=== PATIENT | female | born 1980 | race Asian ===

== ENCOUNTER 2024-01-06 19:03 | Emergency (ER) | payer BC ==
[~2024-01-06] VITALS: Ht 167.6 cm; Wt 59.0 kg
[2024-01-06 20:07] LABS: HEMOGLOBIN 9.5 g/dL (10.9-14.3); MEAN CORPUSCULAR HEMOGLOBIN 20.5 uug (24.7-32.8); MONOCYTES # (AUTO) 0.4 K/uL (0.1-1.30); PLATELET COUNT (AUTO) 201 K/uL (179-408)
[2024-01-06 20:09] LABS: BASOPHILS % (AUTO) 0.9 % (0.0-2.0); EOSINOPHILS % (AUTO) 0.3 % (0.0-7.0); HEMATOCRIT 30.7 % (31.2-41.9); LYMPHOCYTES # (AUTO) 0.7 K/uL (0.8-4.8); LYMPHOCYTES % (AUTO) 41.6 % (20.5-51.5); MEAN CORPUSCULAR HGB CONC 31 g/dL (32.3-35.6); MEAN CORPUSCULAR VOLUME 66.4 fL (75.5-95.3); MONOCYTES % (AUTO) 23.3 % (0.0-11.0); NEUTROPHILS # (AUTO) 0.6 K/uL (1.8-8.9); NEUTROPHILS % (AUTO) 33.9 % (38.5-71.5); RED BLOOD CELL COUNT(AUTO) 4.62 MIL/uL (3.63-4.92); RED CELL DISTRIBUTION WIDTH 19.6 % (12.3-17.7)
[2024-01-06 20:12] LABS: DIFFERENTIAL COMMENT 1
[2024-01-06 20:15] LABS: WHITE BLOOD COUNT (AUTO) 1.7 K/uL (3.8-11.8)
[2024-01-06 20:26] LABS: *MONOTEST NEGATIVE (NEGATIVE)
[2024-01-06] MEDS: KETOROLAC TROMETHAMINE 30 MG INJ IVP ONE (20:30)
[2024-01-06 21:35] LABS: LYMPHOCYTES % (MANUAL) 44 % (20-40); MONOCYTES % (MANUAL) 20 % (2-10); NEUTROPHILS % (MANUAL) 36 % (42-75); PLATELET ESTIMATE ADEQUATE
[2024-01-06] MEDS ORDERED: KETOROLAC TROMETHAMINE 30 MG INJ ONE (21:35)
[2024-01-06 21:36] LABS: ANISOCYTOSIS 2+
[2024-01-06 21:37] LABS: OVALOCYTES 1+; TEAR DROP CELLS 1+
[2024-01-06 23:04] LABS: CALCIUM 8.4 mg/dL (8.5-10.1); CREATININE 0.6 mg/dL (0.6-1.3); POTASSIUM 3.9 mmol/L (3.5-5.1)
[2024-01-06 23:10] LABS: ALBUMIN 3.4 g/dL (3.4-5.0); BILIRUBIN,TOTAL 0.3 mg/dL (0.2-1.0); TOTAL PROTEIN, SERUM 7.1 g/dL (6.4-8.2)
[2024-01-06] MEDS ORDERED: IOHEXOL 300MG/ML 100 ML INFUS..BTL ONE (23:19)
[2024-01-06] MEDS ORDERED: SWABABLE VALVE TRANSFER SET EA MC ONE (23:19)
[2024-01-06] MEDS ORDERED: IV NORMAL SALINE 250 ML IV ONE (23:19)
[2024-01-07] MEDS ORDERED: CLIN-118 PO (06:23)
[2024-01-07 07:05] VITALS: BP 113/72; TEMP 98; O2SAT 98
== END 2024-01-07 07:06 | disposition home or self-care (01) ==
LOC: EDSEX 19:08 → ER 19:08
DX: K11.20 Sialoadenitis, unspecified (principal); Z20.822 Contact with and (suspected) exposure to COVID-19
CPT/HCPCS: 99285; 96374; 70491; 87426; 80053; 85025; 86308; 86403; 87070; 36415; 85007; J1885; Q9967; 70030-TC; A4606; A4663